=== PATIENT | female | born 1995 | race Caucasian/White ===

== ENCOUNTER → 2016-08-08 | Outpatient (REF) | payer OTHER ==
[~2016-08-08] MED LIST: /ACET5TA PO; /MOM400 PO; ANUS2.5C2 TOP; BENA25TA PO; DOCU10ELUD PO; IBUP600T26 PO; PNV-CAP5 PO; PRENTAB74 PO
[2016-08-08 18:17] LABS: FREE T4 1.26 NG/DL (0.76-1.46)
== END ==
LOC: M LABDRAW1 16:53
PROVIDERS: ATTEND Internal Medicine Endocrinology, Diabetes & Metabolism
DX: E06.3 Autoimmune thyroiditis (principal)

== ENCOUNTER 2016-08-16 13:30 | Emergency (ER) | payer OTHER ==
--- NOTE | 2016-08-16 15:09 | EDDOCDS ---
Physician Documentation [facility] Name: Brianna Espinoza Age: 21 yrs Sex: Female : 1995 Arrival Date: 08/16/2016 Time: 13:30 Bed 30 Private MD: Alessandra Dejesus E Disposition: 08/16/16 14:37 Discharged to Home/Self Care. Impression: Adjustment disorder with depressed mood. - Condition is Stable. - Discharge Instructions: Adjustment Disorder. - Medication Reconciliation, Local Pharmacy Hours form. - Follow up: Referral list, As provided by PFS; When: Call to arrange an appointment. Follow up: Alessandra Dejesus DO; When: Call to arrange an appointment. - Problem is new. - Symptoms are unchanged. Historical: - Allergies: no known allergies; - Home Meds: 1. 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 phentermine 30 mg oral TbDL 1 tab once daily for hoshimotos (Last dose: 08/15/2016 08:00) - PMHx: Manpreet's Disease; Hypothyroidism; - PSHx: none; - Social history: Smoking status: Patient states was never smoker of tobacco. Patient/guardian denies using alcohol, street drugs, No barriers to communication noted, The patient speaks fluent Kinyarwanda, Speaks appropriately for age. - Family history: Pertinent for . Mother has/had depression. - : The pt / caregiver states he / she is not on anticoagulants. Home medication list is obtained from the patient. - Exposure Risk Screening:: None identified. 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 4 in. (162.56 cm) (R); 15:06 BP 135 / 70; Pulse 81; Resp 18; Temp 98.4; Pulse Ox 100% on R/A; Pain 0/10; ttb 13:31 Body Mass Index 34.67 (91.63 kg, 162.56 cm) dd6 MDM: 14:50 [facility] Payment Agreement was scanned into [employer] and attached to record. jp5 14:50 Financial registration complete. jp5 15:00 PSA Outpatient Referrals was scanned into [employer] and attached to record. ml4 Signatures: Marysol Owens MD MD sd1 Sheree Hinkle, PSA PSA ml4 Josefa Epps, RN RN ttb Sarah Huitron jp5 The chart was reviewed and I authenticate all verbal orders and agree with the evaluation and treatment provided.Attachments: 14:50 [facility] Payment Agreement jp5 MTDD
--- NOTE | 2016-08-16 15:09 | EDDOCDS ---
Nurse's Notes [facility] Name: Brianna Espinoza Age: 21 yrs Sex: Female : 1995 Arrival Date: 08/16/2016 Time: 13:30 Bed 30 Private MD: Alessandra Dejesus E Diagnosis: Adjustment disorder with depressed mood Presentation: 08/16 13:38 Presenting complaint: Patient states: intermittent periods of "sadness". Pt states she ttb will be fine one day and the next will not be able to "function". Episodes differ but seem to last anywhere from 1-5 days. "I will wake up the next day and I will be fine". She states, "I have an awesome life" but is concerned with these episodes. Approx 5-6 times in past "couple months". Denies SI/HI. States it is "exhausting". Mental Health Triage Level: Level 1- Pt displays no suicidal or homicidal ideations and does not appear to be a danger to self or others. Adult Sepsis Screening: The patient does not have new or worsening altered mentation. Patient's respiratory rate is less than 22. Systolic blood pressure is greater than 100. Patient has a qSOFA score of 0- Negative Sepsis Screen. Suicide/Homicide risk assessment- the patient denies having any suicidal and/or homicidal ideations and does not present with any other emotional, behavioral or mental health complaints. Status: The patient is a dependent. Transition of care: patient was not received from another setting of care. 13:38 Acuity: PER Level 3 ttb 13:38 Method Of Arrival: Walkin/Carried/Asstd ttb Triage Assessment: 13:44 General: Appears in no apparent distress, well nourished, well groomed, Behavior is ttb cooperative, crying, pleasant, quiet. Pain: Location: headache 5/10. HIV screening NA for this visit Offered previously. Neurological: Level of Consciousness is awake, alert, Reports headache. Cardiovascular: Chest pain is denied. Respiratory: No deficits noted. Airway is patent Respiratory effort is even, unlabored, Denies cough, shortness of breath. GI: Denies nausea, vomiting, pain. Derm: Skin is normal. Injury Description: No known injury. 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 phentermine 30 mg oral TbDL 1 tab once daily for hoshimotos (Last dose: 08/15/2016 08:00) - PMHx: Manpreet's Disease; Hypothyroidism; - PSHx: none; - Social history: Smoking status: Patient states was never smoker of tobacco. Patient/guardian denies using alcohol, street drugs, No barriers to communication noted, The patient speaks fluent Kyrgyz, Speaks appropriately for age. - Family history: Pertinent for . Mother has/had depression. - : The pt / caregiver states he / she is not on anticoagulants. Home medication list is obtained from the patient. - Exposure Risk Screening:: None identified. Screenin:46 Screening information is obtained from the patient. Fall risk: No risks identified. ttb Assistance ADL's: requires no assistance with activities of daily living. Abuse/DV Screen: The patient / caregiver reports he/she is: not in a situation that causes fear, pain or injury. Nutritional screening: No deficits noted. Advance Directives: Currently, there is no health care proxy. home support is adequate. Assessment: 13:46 Adult Sepsis Screening: The patient does not have new or worsening altered mentation. ttb Patient's respiratory rate is less than 22. Systolic blood pressure is greater than 100. Patient has a qSOFA score of 0- Negative Sepsis Screen. General: see triage assessment.. Pain: Location: headache "from crying" 12/10. 14:45 Reassessment: Patient appears in no apparent distress at this time. Patient states ttb symptoms have improved. pt less upset. Resting on stretcher. NAD noted.. 15:06 General: Appears in no apparent distress, comfortable, Behavior is appropriate for age, ttb cooperative, pleasant, quiet. General: pt ready for DC. Pt spoke with SW and MD. Referral list given. Pt states she feels comfortable going home at this time and will f/u with PCP and psych. . Pain: Denies pain. Neurological: Level of Consciousness is awake, alert. Respiratory: No deficits noted. Airway is patent Respiratory effort is even, unlabored, Denies cough, shortness of breath. GI: Denies nausea, vomiting, pain. Derm: Skin is normal. Social Work Consult: 14:49 Social Work Note: Met pt at bedside regarding symptoms of depression. Pt reports having ml4 intermittent periods of sadness over the past month and 1/2. States she is unaware of a specific trigger, however states "I may have caregiver burnout." States her spouse was recently diagnosed with a TBI and PTSD. He currently is receiving intensive outpt tx at [facility] which is 5 days per wk, approximately 4 hrs per day. In addition to the above stressor, she admits having 2 children(age 6 and 3). Pt states, "I'm just so stressed." She denies SI and HI, able to CFS. Voluntary admission was discussed, however pt declined. Referrals for outpt services was given at bedside. Status: The patient is a dependent. Vital Signs: 13:31 BP 155 / 81; Pulse 95; Resp 20 S; Temp 98.2; Pulse Ox 100% on R/A; Weight 91.63 kg (R); dd6 Height 5 ft. 4 in. (162.56 cm) (R); 15:06 BP 135 / 70; Pulse 81; Resp 18; Temp 98.4; Pulse Ox 100% on R/A; Pain 0/10; ttb 13:31 Body Mass Index 34.67 (91.63 kg, 162.56 cm) dd6 Vitals: 13:31 Log In Time: August 16, 2016 at 13:29. RN notified that patient meets Red Flag dd6 criteria. ED Course: 13:31 Patient visited by Luther Valenzuela PCA. dd6 13:31 Alessandra Dejesus is Private Physician. dd6 13:31 Patient moved to Waiting dd6 13:36 Patient moved to 30 dd6 13:41 Triage Initiated ttb 13:46 The patient / caregiver is instructed regarding the plan of care and ED course. Patient ttb has correct armband on for positive identification. 13:48 Patient visited by Josefa Epps RN. ttb 14:11 Marysol Owens MD is Attending Physician. sd1 14:13 Patient visited by Marysol Owens MD. sd1 14:24 Patient visited by Sheree Hinkle PSA. ml4 14:37 Referral list, As provided by PFS is Referral Physician. sd1 14:37 Alessandra Dejesus DO is Referral Physician. sd1 14:50 [facility] Payment Agreement was scanned into [employer] and attached to record. jp5 15:00 PSA Outpatient Referrals was scanned into [employer] and attached to record. ml4 15:06 No IV's were initiated during this patient's visit. No procedures done that require ttb assistance. Order Results: There are currently no results for this order. Outcome: 14:37 Discharge ordered by Provider. sd1 15:06 Discharge Assessment: Patient awake, alert and oriented x 3. No cognitive and/or ttb functional deficits noted. Patient verbalized understanding of disposition instructions. Patient awake and alert. patient administered narcotics - no. The following High Risk Discharge criteria are identified: None. Discharged to home ambulatory. Condition: good Condition: stable Condition: improved. Discharge instructions given to patient, Instructed on discharge instructions, follow up and referral plans. Demonstrated understanding of instructions, referral list and f/u Pt was receptive of discharge instructions/ teaching. No special radiology studies were completed. Property :Personal belongings accompany Pt. 15:08 Patient left the ED. ttb Signatures: Marysol Owens MD MD sd1 Sheree Hinkle, PSA PSA ml4 Luther Valenzuela, MUSIC LEADER MUSIC LEADER dd6 Josefa Epps, RN RN ttb Sarah Huitron jp5 MTDD
--- NOTE | 2016-08-18 16:09 | EDDOCDS ---
Physician Documentation [facility] Name: Brianna Espinoza Age: 21 yrs Sex: Female : 1995 Arrival Date: 08/16/2016 Time: 13:30 Bed 30 Private MD: Alessandra Dejesus E Disposition: 08/16/16 14:37 Discharged to Home/Self Care. Impression: Adjustment disorder with depressed mood. - Condition is Stable. - Discharge Instructions: Adjustment Disorder. - Medication Reconciliation, Local Pharmacy Hours form. - Follow up: Referral list, As provided by PFS; When: Call to arrange an appointment. Follow up: Alessandra Dejesus DO; When: Call to arrange an appointment. - Problem is new. - Symptoms are unchanged. Historical: - Allergies: no known allergies; - Home Meds: 1. 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 phentermine 30 mg oral TbDL 1 tab once daily for hoshimotos (Last dose: 08/15/2016 08:00) - PMHx: Manpreet's Disease; Hypothyroidism; - PSHx: none; - Social history: Smoking status: Patient states was never smoker of tobacco. Patient/guardian denies using alcohol, street drugs, No barriers to communication noted, The patient speaks fluent Lao, Speaks appropriately for age. - Family history: Pertinent for . Mother has/had depression. - : The pt / caregiver states he / she is not on anticoagulants. Home medication list is obtained from the patient. - Exposure Risk Screening:: None identified. 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 4 in. (162.56 cm) (R); 15:06 BP 135 / 70; Pulse 81; Resp 18; Temp 98.4; Pulse Ox 100% on R/A; Pain 0/10; ttb 13:31 Body Mass Index 34.67 (91.63 kg, 162.56 cm) dd6 MDM: 14:50 [facility] Payment Agreement was scanned into [employer] and attached to record. jp5 14:50 Financial registration complete. jp5 15:00 PSA Outpatient Referrals was scanned into [employer] and attached to record. ml4 21:12 T-Sheet-- Draft Copy was scanned into [employer] and attached to record. klr Signatures: Marysol Owens MD MD sd1 Sheree Hinkle, PSA PSA ml4 Josefa Epps RN RN Sarah Lawson jp5 Shannon Samuels klr The chart was reviewed and I authenticate all verbal orders and agree with the evaluation and treatment provided.Attachments: 14:50 [facility] Payment Agreement jp5 21:12 T-Sheet-- Draft Copy klr Chart Complete MTDD
--- NOTE | 2016-08-18 16:09 | EDDOCDS ---
Physician Documentation [facility] Name: Brianna Espinoza Age: 21 yrs Sex: Female : 1995 Arrival Date: 08/16/2016 Time: 13:30 Bed 30 Private MD: Alessandra Dejesus E Disposition: 08/16/16 14:37 Discharged to Home/Self Care. Impression: Adjustment disorder with depressed mood. - Condition is Stable. - Discharge Instructions: Adjustment Disorder. - Medication Reconciliation, Local Pharmacy Hours form. - Follow up: Referral list, As provided by PFS; When: Call to arrange an appointment. Follow up: Alessandra Dejesus DO; When: Call to arrange an appointment. - Problem is new. - Symptoms are unchanged. Historical: - Allergies: no known allergies; - Home Meds: 1. 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 phentermine 30 mg oral TbDL 1 tab once daily for hoshimotos (Last dose: 08/15/2016 08:00) - PMHx: Manpreet's Disease; Hypothyroidism; - PSHx: none; - Social history: Smoking status: Patient states was never smoker of tobacco. Patient/guardian denies using alcohol, street drugs, No barriers to communication noted, The patient speaks fluent Urdu, Speaks appropriately for age. - Family history: Pertinent for . Mother has/had depression. - : The pt / caregiver states he / she is not on anticoagulants. Home medication list is obtained from the patient. - Exposure Risk Screening:: None identified. 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 4 in. (162.56 cm) (R); 15:06 BP 135 / 70; Pulse 81; Resp 18; Temp 98.4; Pulse Ox 100% on R/A; Pain 0/10; ttb 13:31 Body Mass Index 34.67 (91.63 kg, 162.56 cm) dd6 MDM: 14:50 [facility] Payment Agreement was scanned into [employer] and attached to record. jp5 14:50 Financial registration complete. jp5 15:00 PSA Outpatient Referrals was scanned into [employer] and attached to record. ml4 21:12 T-Sheet-- Draft Copy was scanned into [employer] and attached to record. klr Signatures: Marysol Owens MD MD sd1 Sheree Hinkle, PSA PSA ml4 Josefa Epps RN RN Sarah Lawson jp5 Shannon Samuels klr The chart was reviewed and I authenticate all verbal orders and agree with the evaluation and treatment provided.Attachments: 14:50 [facility] Payment Agreement jp5 21:12 T-Sheet-- Draft Copy klr Chart Complete MTDD
--- NOTE | 2016-08-18 16:09 | EDDOCDS ---
Nurse's Notes [facility] Name: Brianna Espinoza Age: 21 yrs Sex: Female : 1995 Arrival Date: 08/16/2016 Time: 13:30 Bed 30 Private MD: Alessandra Dejesus E Diagnosis: Adjustment disorder with depressed mood Presentation: 08/16 13:38 Presenting complaint: Patient states: intermittent periods of "sadness". Pt states she ttb will be fine one day and the next will not be able to "function". Episodes differ but seem to last anywhere from 1-5 days. "I will wake up the next day and I will be fine". She states, "I have an awesome life" but is concerned with these episodes. Approx 5-6 times in past "couple months". Denies SI/HI. States it is "exhausting". Mental Health Triage Level: Level 1- Pt displays no suicidal or homicidal ideations and does not appear to be a danger to self or others. Adult Sepsis Screening: The patient does not have new or worsening altered mentation. Patient's respiratory rate is less than 22. Systolic blood pressure is greater than 100. Patient has a qSOFA score of 0- Negative Sepsis Screen. Suicide/Homicide risk assessment- the patient denies having any suicidal and/or homicidal ideations and does not present with any other emotional, behavioral or mental health complaints. Status: The patient is a dependent. Transition of care: patient was not received from another setting of care. 13:38 Acuity: PER Level 3 ttb 13:38 Method Of Arrival: Walkin/Carried/Asstd ttb Triage Assessment: 13:44 General: Appears in no apparent distress, well nourished, well groomed, Behavior is ttb cooperative, crying, pleasant, quiet. Pain: Location: headache 5/10. HIV screening NA for this visit Offered previously. Neurological: Level of Consciousness is awake, alert, Reports headache. Cardiovascular: Chest pain is denied. Respiratory: No deficits noted. Airway is patent Respiratory effort is even, unlabored, Denies cough, shortness of breath. GI: Denies nausea, vomiting, pain. Derm: Skin is normal. Injury Description: No known injury. 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 phentermine 30 mg oral TbDL 1 tab once daily for hoshimotos (Last dose: 08/15/2016 08:00) - PMHx: Manpreet's Disease; Hypothyroidism; - PSHx: none; - Social history: Smoking status: Patient states was never smoker of tobacco. Patient/guardian denies using alcohol, street drugs, No barriers to communication noted, The patient speaks fluent Lithuanian, Speaks appropriately for age. - Family history: Pertinent for . Mother has/had depression. - : The pt / caregiver states he / she is not on anticoagulants. Home medication list is obtained from the patient. - Exposure Risk Screening:: None identified. Screenin:46 Screening information is obtained from the patient. Fall risk: No risks identified. ttb Assistance ADL's: requires no assistance with activities of daily living. Abuse/DV Screen: The patient / caregiver reports he/she is: not in a situation that causes fear, pain or injury. Nutritional screening: No deficits noted. Advance Directives: Currently, there is no health care proxy. home support is adequate. Assessment: 13:46 Adult Sepsis Screening: The patient does not have new or worsening altered mentation. ttb Patient's respiratory rate is less than 22. Systolic blood pressure is greater than 100. Patient has a qSOFA score of 0- Negative Sepsis Screen. General: see triage assessment.. Pain: Location: headache "from crying" 12/10. 14:45 Reassessment: Patient appears in no apparent distress at this time. Patient states ttb symptoms have improved. pt less upset. Resting on stretcher. NAD noted.. 15:06 General: Appears in no apparent distress, comfortable, Behavior is appropriate for age, ttb cooperative, pleasant, quiet. General: pt ready for DC. Pt spoke with SW and MD. Referral list given. Pt states she feels comfortable going home at this time and will f/u with PCP and psych. . Pain: Denies pain. Neurological: Level of Consciousness is awake, alert. Respiratory: No deficits noted. Airway is patent Respiratory effort is even, unlabored, Denies cough, shortness of breath. GI: Denies nausea, vomiting, pain. Derm: Skin is normal. Social Work Consult: 14:49 Social Work Note: Met pt at bedside regarding symptoms of depression. Pt reports having ml4 intermittent periods of sadness over the past month and 1/2. States she is unaware of a specific trigger, however states "I may have caregiver burnout." States her spouse was recently diagnosed with a TBI and PTSD. He currently is receiving intensive outpt tx at [facility] which is 5 days per wk, approximately 4 hrs per day. In addition to the above stressor, she admits having 2 children(age 6 and 3). Pt states, "I'm just so stressed." She denies SI and HI, able to CFS. Voluntary admission was discussed, however pt declined. Referrals for outpt services was given at bedside. Status: The patient is a dependent. Vital Signs: 13:31 BP 155 / 81; Pulse 95; Resp 20 S; Temp 98.2; Pulse Ox 100% on R/A; Weight 91.63 kg (R); dd6 Height 5 ft. 4 in. (162.56 cm) (R); 15:06 BP 135 / 70; Pulse 81; Resp 18; Temp 98.4; Pulse Ox 100% on R/A; Pain 0/10; ttb 13:31 Body Mass Index 34.67 (91.63 kg, 162.56 cm) dd6 Vitals: 13:31 Log In Time: August 16, 2016 at 13:29. RN notified that patient meets Red Flag dd6 criteria. ED Course: 13:31 Patient visited by Luther Valenzuela PCA. dd6 13:31 Alessandra Dejesus is Private Physician. dd6 13:31 Patient moved to Waiting dd6 13:36 Patient moved to 30 dd6 13:41 Triage Initiated ttb 13:46 The patient / caregiver is instructed regarding the plan of care and ED course. Patient ttb has correct armband on for positive identification. 13:48 Patient visited by Josefa Epps RN. ttb 14:11 Marysol Owens MD is Attending Physician. sd1 14:13 Patient visited by Marysol Owens MD. sd1 14:24 Patient visited by Sheree Hinkle PSA. ml4 14:37 Referral list, As provided by PFS is Referral Physician. sd1 14:37 Alessandra Dejesus DO is Referral Physician. sd1 14:50 [facility] Payment Agreement was scanned into [employer] and attached to record. jp5 15:00 PSA Outpatient Referrals was scanned into [employer] and attached to record. ml4 15:06 No IV's were initiated during this patient's visit. No procedures done that require ttb assistance. 21:12 T-Sheet-- Draft Copy was scanned into [employer] and attached to record. klr Order Results: There are currently no results for this order. Outcome: 14:37 Discharge ordered by Provider. sd1 15:06 Discharge Assessment: Patient awake, alert and oriented x 3. No cognitive and/or ttb functional deficits noted. Patient verbalized understanding of disposition instructions. Patient awake and alert. patient administered narcotics - no. The following High Risk Discharge criteria are identified: None. Discharged to home ambulatory. Condition: good Condition: stable Condition: improved. Discharge instructions given to patient, Instructed on discharge instructions, follow up and referral plans. Demonstrated understanding of instructions, referral list and f/u Pt was receptive of discharge instructions/ teaching. No special radiology studies were completed. Property :Personal belongings accompany Pt. 15:08 Patient left the ED. ttb Signatures: Marysol Owens MD MD sd1 Sheree Hinkle, PSA PSA ml4 Luther Valenzuela, MEMS ENGINEER MEMS ENGINEER dd6 Josefa Epps, RN RN ttb Sarah Huitron jp5 Shannon Samuels Chart Complete MTDD
== END 2016-08-16 15:08 | disposition home or self-care (01) ==
LOC: M ED 13:30
DX: F43.20 Adjustment disorder, unspecified (principal); E06.3 Autoimmune thyroiditis; E03.9 Hypothyroidism, unspecified; Z79.899 Other long term (current) drug therapy

== ENCOUNTER 2017-02-17 02:02 | Emergency (ER) | payer OTHER ==
[2017-02-17] MEDS ORDERED: LEVO137T2 PO (02:12)
[2017-02-17] MEDS ORDERED: SUCR1TA PO (02:12)
[2017-02-17] MEDS ORDERED: GI COCKTAIL 50ML BTL(HYOSCYAMINE/MAALOX/LIDOCAINE VISCOUS)(1:3:1) PO ONE (02:15)
[2017-02-17] MEDS ORDERED: GI COCKTAIL 50ML BTL(HYOSCYAMINE/MAALOX/LIDOCAINE VISCOUS)(1:3:1) As Ordered ONE (02:17)
[2017-02-17 04:21] VITALS: BP 119/68
== END 2017-02-17 04:28 | disposition home or self-care (01) ==
LOC: M ED 02:02
DX: K21.9 Gastro-esophageal reflux disease without esophagitis (principal); Z79.899 Other long term (current) drug therapy